=== PATIENT | male | born 1980 | race Caucasian/White ===

== ENCOUNTER 2018-10-27 21:48 | Emergency (ER) | payer SELFPAY ==
[2018-10-27 21:49] VITALS: BP 148/109
--- NOTE | 2018-10-27 22:37 | ER Report ---
History and Physical Time Seen By MD: 22:36 Hx. of Stated Complaint: SHELTER CLEARANCE DUE TO ALCOHOL INTOXICATION HPI/ROS CHIEF COMPLAINT: Retirement clearance HISTORY OF PRESENT ILLNESS: 38-year-old male brought in by police for fpc clearance. Patient voices no complaints. Patient voices no significant past medical history. He voices no injuries. Patient missed alcohol ingestion. REVIEW OF SYSTEMS: Respiratory: No cough, no dyspnea. Cardiovascular: No chest pain, no palpitations. Gastrointestinal: No vomiting, no abdominal pain. Musculoskeletal: No back pain. Allergies: Coded Allergies: shellfish derived (Verified Allergy, Unknown, 10/27/18) Reviewed Nurses Notes: Yes Old Medical Records Reviewed: Yes Hx Substance Use Disorder: No Hx Alcohol Use: Yes Constitutional Vital Sign - Last 24 Hours 10/27/18 21:49 Temp 98.6 Pulse 129 Resp 18 B/P (MAP) 148/109 Pulse Ox 91 O2 Delivery Room Air Physical Exam Mild signs stable, afebrile, pulse ox normal General Appearance: The patient is alert, has no immediate need for airway protection and no current signs of toxicity. Palpation of the head and neck reveal no tenderness or trauma HEENT: Pupils equal and round no injection. TMs normal, oropharynx without redness or dental trauma Respiratory: Chest is non tender, lungs are clear to auscultation. No chest wall tenderness Cardiac: regular rate and rhythm Gastrointestinal: Abdomen is soft and non tender, no masses, bowel sounds normal. Musculoskeletal: Neck: Neck is supple and non tender. Extremities have full range of motion and are non tender. Skin: No rashes or lesions. DIFFERENTIAL DIAGNOSIS: After history and physical exam differential diagnosis was considered for fpc clearance, alcohol intoxication, polysubstance abuse Medical Decision Making ED Course/Re-evaluation ED Course Patient was admitted to an examination room. H&P was done. The differential diagnoses was considered. On clinical examination. Patient has no findings. His vital signs are stable. Patient's medically cleared for fpc admission. Decision to Disposition Date: Oct 27, 2018 Decision to Disposition Time: 22:38 Depart Departure Latest Vital Signs Vital Signs Date Time Temp Pulse Resp B/P (MAP) Pulse Ox O2 Delivery O2 Flow Rate FiO2 10/27/18 21:49 98.6 129 18 148/109 91 Room Air Impression: Primary Impression: Medical clearance for incarceration Additional Impression: Alcohol intoxication Condition: Improved Disposition: [facility] TO SHELTER/CORRECTIONAL F Patient Instructions: Alcohol Intoxication (ED) Additional Instructions: Medical cleared for fpc admission Problem Qualifiers SHANNAN BURROWS DO Oct 27, 2018 22:36
== END 2018-10-27 22:40 ==
LOC: ER 22:40
DX: F10.120 Alcohol abuse with intoxication, uncomplicated (principal)
CPT/HCPCS: 99281